=== PATIENT | male | born 1955 | race Caucasian/White ===

== ENCOUNTER → 2023-04-09 09:02 | Outpatient (BNVA) | payer OTHER, SELFPAY | PROVIDERS: PCP Nurse Practitioner Family; Visit Provider Internal Medicine Rheumatology | DX: Z79.899 Other long term (current) drug therapy (principal); M19.90 Unspecified osteoarthritis, unspecified site; M45.6 Ankylosing spondylitis lumbar region; Z11.59 Encounter for screening for other viral diseases; Z11.1 Encounter for screening for respiratory tuberculosis; Z71.85 Encounter for immunization safety counseling; M47.816 Spondylosis without myelopathy or radiculopathy, lumbar region | CPT/HCPCS: 36415; 72100; 72202; 73630; 80076; 82306; 82565; 83520; 85025; 85651; 86140; 86200; 86480; 86704; 86803; 86812; 87340; 99204 ==